=== PATIENT | female | born 1970 | race Caucasian/White ===

== ENCOUNTER → 2019-09-02 | Outpatient (CLI) | payer MEDICARE, MEDICAID ==
[2019-09-02 13:40] LABS: INTERNATIONAL RATION (INR) 1.62; PROTHROMBIN TIME 19.4 SEC (11.4-15.4)
== END ==
LOC: OD 12:48
PROVIDERS: ATTEND Registered Nurse
DX: D68.0 Von Willebrand disease (principal); Z79.01 Long term (current) use of anticoagulants; Z95.811 Presence of heart assist device
CPT/HCPCS: 36415; 85610

== ENCOUNTER 2020-01-27 11:38 | Emergency (ER) | payer MEDICARE, MEDICAID ==
--- NOTE | 2020-01-27 12:06 | ER Document Report ---
ED Medical Screen (RME) - General Chief Complaint: Shortness Of Breath Stated Complaint: SHORTNESS OF BREATH Primary Care Provider: TWAN SCOTT FNP [Primary Care Provider] - Follow up as needed Notes: Patient is a 49-year-old -[place] female with a history of CHF and ejection fraction of 20% with an LVAD in place who presents to the emergency department chief complaint of chest pain. She states it was right chest and back pain that lasted about 5 or 6 minutes this morning. States she felt like she was being stopped and kicked. She reports that she called Dariusz who manages her LVAD and they advised she come to the ER for evaluation. She states she is currently asymptomatic. I have treated and performed a rapid initial assessment of this patient. A comprehensive ED assessment and evaluation of the patient, analysis of test results and completion of medical decision making process will be conducted by additional ED providers. PHYSICAL EXAMINATION: GENERAL: Well-appearing, well-nourished and in no acute distress. A&Ox4. Answers questions appropriately. TRAVEL OUTSIDE OF THE [place] IN LAST 30 DAYS: No - Related Data Allergies/Adverse Reactions: lisinopril Allergy (Verified 01/27/20 12:02) tramadol Allergy (Verified 01/27/20 12:02) Physical Exam - Vital signs Vitals: Temp Pulse Resp BP Pulse Ox 98.1 F 79 18 90/56 L 98 01/27/20 11:45 01/27/20 11:45 01/27/20 11:45 01/27/20 11:45 01/27/20 11:45 Course - Vital Signs Vital signs: Temp Pulse Resp BP Pulse Ox 98.1 F 79 18 90/56 L 98 01/27/20 11:45 01/27/20 11:45 01/27/20 11:45 01/27/20 11:45 01/27/20 11:45 Doctor's Discharge - Discharge Referrals: TWAN SCOTT FNP [Primary Care Provider] - Follow up as needed
--- NOTE | 2020-01-27 12:25 | EKG REPORT ---
SEVERITY:- DEFECTIVE ECG - TECHNICALLY POOR TRACING - PLEASE REPEAT ECG! SINUS RHYTHM REPOL ABNRM, PROBABLE ISCHEMIA, LATERAL LEADS : Confirmed by: Ruslan Dutta MD 27-Jan-2020 12:23:58
[2020-01-27 12:41] LABS: ABSOLUTE EOSINOPHILS # (AUTO) 0.1 10^3/uL (0.0-0.6); ABSOLUTE LYMPHOCYTES (AUTO) 2.1 10^3/uL (0.5-4.7); ABSOLUTE MONOCYTES (AUTO) 0.6 10^3/uL (0.1-1.4); ABSOLUTE NEUT (AUTO) 3.1 10^3/uL (1.7-8.2); BASOPHILS % (AUTO) 0.8 % (0-2); EOSINOPHILS % (AUTO) 1.4 % (0-6); HEMATOCRIT 37.3 % (36.0-47.0); HEMOGLOBIN 12.5 g/dL (12.0-15.5); LYMPHOCYTES % (AUTO) 35.9 % (13-45); MEAN CORPUSCULAR HEMOGLOBIN 32.5 pg (27.0-33.4); MEAN CORPUSCULAR HGB CONC 33.4 g/dL (32.0-36.0); MEAN CORPUSCULAR VOLUME 97 fl (80-97); MONOCYTES % (AUTO) 9.3 % (3-13); PLATELET COUNT 313 10^3/uL (150-450); RED BLOOD COUNT 3.83 10^6/uL (3.72-5.28); RED CELL DISTRIBUTION WIDTH 13.3 % (11.5-14.0); SEGMENTED NEUTROPHILS % (AUTO) 52.6 % (42-78); TOTAL CELLS COUNTED % (AUTO) 100 %
[2020-01-27 12:47] LABS: PROTHROMBIN TIME 24.5 SEC (11.4-15.4)
[2020-01-27 12:48] LABS: PARTIAL THROMBOPLASTIN TIME 42.3 SEC (23.5-35.8)
[2020-01-27 13:01] LABS: ALKALINE PHOSPHATASE 74 U/L (38-126); ANION GAP 6 (5-19); ASPARTATE AMINO TRANSFERASE 32 U/L (14-36); BILIRUBIN,TOTAL 0.5 mg/dL (0.2-1.3); BLOOD UREA NITROGEN 14 mg/dL (7-20); CALCIUM 8.8 mg/dL (8.4-10.2); CARBON DIOXIDE 29 mmol/L (22-30); CHLORIDE 103 mmol/L (98-107); CREATINE KINASE 71 U/L (30-135); GLUCOSE 87 mg/dL (75-110); POTASSIUM 4.4 mmol/L (3.6-5.0); TOTAL PROTEIN 7.7 g/dL (6.3-8.2)
--- NOTE | 2020-01-27 13:01 | RADIOLOGY REPORT (SQ) ---
EXAM DESCRIPTION: CHEST SINGLE VIEW IMAGES COMPLETED DATE/TIME: 01/27/2020 12:37 pm REASON FOR STUDY: cp COMPARISON: None. EXAM PARAMETERS: NUMBER OF VIEWS: One view. TECHNIQUE: Single frontal radiographic view of the chest acquired. RADIATION DOSE: NA LIMITATIONS: None. FINDINGS: LUNGS AND PLEURA: No opacities, masses or pneumothorax. No pleural effusion. MEDIASTINUM AND HILAR STRUCTURES: No masses. Contour normal. HEART AND VASCULAR STRUCTURES: Heart normal in size. Normal vasculature. BONES: No acute findings. HARDWARE: Midline surgical changes. AICD. Left ventricular assist device. OTHER: No other significant finding. IMPRESSION: No evidence of acute cardiopulmonary abnormality. TECHNICAL DOCUMENTATION: JOB ID: [id number] 2010 [employer]- All Rights Reserved Reading location - IP/workstation name: [email or web address]
[2020-01-27 17:23] VITALS: BP 116/74
--- NOTE | 2020-01-27 18:52 | ER Document Report ---
Entered by KWABENA HILL SCRIBE 01/27/20 1246 Acting as scribe for:EFRA GUADARRAMA MD ED General - General Chief Complaint: Chest Pain Stated Complaint: SHORTNESS OF BREATH Time Seen by Provider: 01/27/20 12:44 Primary Care Provider: TWAN SCOTT FNP [NO LOCAL MD] - Follow up as needed Information source: Patient Notes: This 49 year old female patient with CHF s/p LVAD placement presents to the emergency department today with complaints of left sided "rib pain" yesterday which has subsided and right sided jaw pain and shortness of breath today. Patient states that her shortnes of breath only lasted for a few seconds today but she called her LVAD team which told her she needed to be evaluated. Patient currently only has intermittent right sided jaw pain. Patient describes this pain as "sharp pressure". TRAVEL OUTSIDE OF THE [place] IN LAST 30 DAYS: No - Related Data Allergies/Adverse Reactions: lisinopril Allergy (Verified 01/27/20 12:02) tramadol Allergy (Verified 01/27/20 12:02) Home Medications: gabapentin. warfarin. levothryoxine. fluticasone. digoxin. sildenafil. spironolactone. ferrous sulfate. prilosce. aspirin. folic acid. metalozone. torsemide. multivitamin. caltrate. zyrtec. percocet. Past Medical History - General Information source: Patient - Social History Smoking Status: Former Smoker Cigarette use (# per day): No Chew tobacco use (# tins/day): No Frequency of alcohol use: None Drug Abuse: None Lives with: Family Family History: Reviewed & Not Pertinent Patient has homicidal ideation: No - Past Medical History Cardiac Medical History: Reports: Hx Congestive Heart Failure Past Surgical History: Reports: Hx Cardiac Surgery - LVAD placement Review of Systems - Review of Systems Constitutional: denies: Diaphoresis EENT: See HPI, Other - jaw pain Cardiovascular: See HPI, Chest pain Respiratory: See HPI, Short of breath Gastrointestinal: No symptoms reported Genitourinary: No symptoms reported Female Genitourinary: No symptoms reported Musculoskeletal: No symptoms reported Skin: No symptoms reported Hematologic/Lymphatic: No symptoms reported Neurological/Psychological: No symptoms reported -: Yes All other systems reviewed and negative Physical Exam - Vital signs Vitals: Temp Pulse Resp BP Pulse Ox 98.1 F 79 18 90/56 L 98 01/27/20 11:45 01/27/20 11:45 01/27/20 11:45 01/27/20 11:45 01/27/20 11:45 - Notes Notes: Physical Exam: General: Alert, appears well. HEENT: Normocephalic. Atraumatic. PERRL. Extraocular movements intact. Oropharynx clear. Neck: Supple. Non-tender. Respiratory: No respiratory distress. Clear and equal breath sounds bilaterally. Healed surgical scars. Cardiovascular: Mechanical whirr, no palpable pulses consistent with LVAD. Abdominal: Obese. Non-tender. No distension. Normal Bowel Sounds. Back: No gross abnormalities. Extremities: Moves all four extremities. Upper extremities: Normal inspection. Normal ROM. Lower extremities: Normal inspection. No edema. Normal ROM. Neurological: Normal cognition. AAOx4. Normal speech. Psychological: Normal affect. Normal Mood. Skin: Warm. Dry. Normal color. No rashes. Course - Re-evaluation Re-evalutation: 01/27/20 18:28 Patient resting comfortably and has not shown any signs of distress or hemodynamic compromise. Patient denies any chest pain since she has been in the department. 01/27/20 18:49 Case discussed with the LVAD coordinator at [facility] shared patient's clinical course here in the ED as well as laboratory values and inasmuch as patient is not showing any kind of acute injury pattern we were able to discharge patient home without any further evaluation today. Patient is advised to follow-up with her primary care physicians and her LVAD doctors at [facility]. - Vital Signs Vital signs: Temp Pulse Resp BP Pulse Ox 98.1 F 79 24 H 116/74 100 01/27/20 12:02 01/27/20 11:45 01/27/20 18:01 01/27/20 17:01 01/27/20 14:03 01/27/20 18:28 Signs are stable showing no acute process. - Laboratory Result Diagrams: 01/27/20 12:19 01/27/20 12:19 Laboratory results interpreted by me: 01/27/20 01/27/20 12:19 12:19 PT 24.5 H APTT 42.3 H NT-Pro-B Natriuret Pep 654 H Patient's laboratories essentially within normal limits except BNP was 654 and a pro time was 24.5. - Diagnostic Test Radiology reviewed: Image reviewed, Reports reviewed Radiology results interpreted by me: 01/27/20 18:30 Chest x-ray shows no acute process left ventricular assist device noted along with surgical wires otherwise no acute process. - EKG Interpretation by Me Additional EKG results interpreted by me: 01/27/20 18:31 Technical poor tracing. Repeat tracing needed. Nonetheless a sinus rhythm with questionable ischemic changes. Repeat EKG is ordered. 01/27/20 18:45 Shows normal sinus rhythm rate of 84 with biatrial abnormalities. Inferior injury probably early acute infarct. Old inferior injury. Abnormal R wave progression consider lead placement or acute OK. Reviewing reviewing the EKGs at today patient has electrical interference because of her LVAD and therefore the EKG has brought interference through several of the leads of the EKG. Makes interpretation somewhat difficult however there is no evidence that I see of an acute OK. Patient has been hemodynamically stable chest pain-free and a troponin x2 actually both within the cutoff range of of normal and actually declining. With that said I do not think patient is having an acute ST elevation OK. Discharge - Discharge Clinical Impression: Chest pain at rest, Left ventricular assist device present, Congestive heart failure Condition: Stable Disposition: HOME, SELF-CARE Instructions: Chest Pain of Unclear Cause ([facility]) Additional Instructions: Today's evaluation has not disclosed that there is any acute coronary event or congestive heart failure worsening today. We had discussion with your LVAD coordinator at [facility] and based on our discussion you are stable to be discharged home. We do advise that you return to the department if you have any further problems also we advised that you follow-up with your doctors at [facility] regarding your LVAD and your conditions of chest pain if they do return. There is no change in your medications at this time. Referrals: TWAN SCOTT, ROBB [NO LOCAL MD] - Follow up as needed I personally performed the services described in the documentation, reviewed and edited the documentation which was dictated to the scribe in my presence, and it accurately records my words and actions.
--- NOTE | 2020-01-27 19:59 | EKG REPORT ---
SEVERITY:- DEFECTIVE ECG - SINUS RHYTHM BIATRIAL ABNORMALITIES INFERIOR INJURY, PROBABLE EARLY ACUTE INFARCT LATERAL INFARCT, OLD ABNRM R PROG, CONSIDER ASMI OR LEAD PLACEMENT : Confirmed by: Ruslan Dutta MD 27-Jan-2020 19:57:54
== END 2020-01-27 19:23 | disposition home or self-care (01) ==
LOC: ER 11:38
DX: R07.9 Chest pain, unspecified (principal); R07.81 Pleurodynia; I50.9 Heart failure, unspecified; Z95.811 Presence of heart assist device; R06.02 Shortness of breath; R68.84 Jaw pain; Z88.8 Allergy status to other drugs, medicaments and biological substances; Z79.899 Other long term (current) drug therapy; Z79.01 Long term (current) use of anticoagulants; Z79.82 Long term (current) use of aspirin; Z87.891 Personal history of nicotine dependence
CPT/HCPCS: 36415; 71045; 80053; 82550; 83880; 84484; 85025; 85610; 85730; 93005; 93010; 99285

== ENCOUNTER 2020-03-10 20:55 | Emergency (ER) | payer MEDICARE, MEDICAID ==
[2020-03-10] MEDS ORDERED: METOCLOPRAMIDE HCL INJ/PF 10 MG/2 ML SDV IV ONE (22:31)
[2020-03-10] MEDS: ONDANSETRON 4 MG TAB.RAPDIS PO ONE ×2 (22:34→22:39)
[2020-03-10] MEDS: ACETAMINOPHEN 325 MG TABLET PO ONE ×2 (22:34→22:38)
[2020-03-10] MEDS ORDERED: NORMAL SALINE 250 ML IV ONE (22:38)
--- NOTE | 2020-03-10 22:43 | ER Document Report ---
ED Headache <BRANDI PAGAN - Last Filed: 03/11/20 02:00> - General TRAVEL OUTSIDE OF THE [place] IN LAST 30 DAYS: No - Related Data Home Medications: Gabapentin. warfarin. Levothyroxine. flonase. DIgoxin. SIfdenafil. spironolactone. iron. prilosec. ASA. folic acid. metalaomzone. lasix. multi vitamin. zyrtec <MEGAN WARD - Last Filed: 03/11/20 03:04> - General Chief Complaint: Headache Stated Complaint: SEVERE HEADACHE,VOMITING Time Seen by Provider: 03/10/20 22:08 Primary Care Provider: SHOSHANA AYALA MD [Primary Care Provider] - Follow up as needed Notes: Patient is a 49-year-old female who presents the emergency department with a chief complaint of a headache. Patient states that her headache started this morning. States that it is in her frontal area of her head. Patient states that her daughter tested positive for COVID-19. Patient states that she was tested today, but did not receive her results. Patient states that she has been vomiting multiple times. Patient states that she has never had this before. Patient sometimes does complain of migraines. Patient is currently on warfarin. She is an LVAD patient. (MEGAN WARD) - Related Data Allergies/Adverse Reactions: lisinopril Allergy (Verified 01/27/20 12:02) tramadol Allergy (Verified 01/27/20 12:02) Past Medical History - Social History Smoking Status: Former Smoker Chew tobacco use (# tins/day): No Frequency of alcohol use: None Drug Abuse: None Family History: Reviewed & Not Pertinent - Past Medical History Cardiac Medical History: Reports: Hx Congestive Heart Failure Denies: Hx Atrial Fibrillation, Hx Hypertension Pulmonary Medical History: Denies: Hx Bronchitis, Hx COPD, Hx Pneumonia, Hx Tuberculosis Neurological Medical History: Denies: Hx Migraine, Hx Seizures Endocrine Medical History: Denies: Hx Diabetes Mellitus Type 1, Hx Diabetes Mellitus Type 2 Renal/ Medical History: Denies: Hx End Stage Renal Disease, Hx Kidney Stones GI Medical History: Denies: Hx Gastroesophageal Reflux Disease, Hx Ulcer Musculoskeletal Medical History: Denies Hx Arthritis Psychiatric Medical History: Denies: Hx Attention Deficit Hyperactivity Disorder, Hx Bipolar Disorder, Hx Depression, Hx Schizophrenia Past Surgical History: Reports: Hx Abdominal Surgery, Hx Appendectomy, Hx Cardiac Catheterization, Hx Cardiac Surgery - LVAD placement, pacemaker, Hx Cholecystectomy, Hx Gynecologic Surgery, Hx Hysterectomy, Hx Orthopedic Surgery, Hx Thyroid Surgery, Hx Tubal Ligation. Denies: Hx Bowel Surgery, Hx Breast Surgery, Hx Mastectomy, Hx Nose Surgery, Hx Oral Surgery, Hx Pancreatic Surgery, Hx Pituitary Surgery, Hx Urinary Tract Surgery <MEGAN WARD - Last Filed: 03/11/20 03:04> Review of Systems <MEGAN WARD - Last Filed: 03/11/20 03:04> - Review of Systems Notes: REVIEW OF SYSTEMS: CONSTITUTIONAL : Denies recent illness. Denies recent unintentional weight loss. See HPI. EENT: Denies eye, ear, throat, or mouth pain, discharge, or symptoms. See HPI. CARDIOVASCULAR: Denies chest pain. RESPIRATORY: Denies shortness of breath, cough, congestion, difficulty breathing, or wheezing. GASTROINTESTINAL: See HPI. GENITOURINARY: Denies difficulty urinating, burning, blood in urine, urgency or frequency. MUSCULOSKELETAL: Denies neck and back pain. Denies joint pain or swelling. SKIN: Denies rash, itchiness, or lesions HEMATOLOGIC : Denies easy bruising or bleeding. LYMPHATIC: Denies swollen, painful, enlarged glands. NEUROLOGICAL: Denies no numbness or tingling denies weakness. Denies altered mental status. Denies alteration in speech. See HPI. PSYCHIATRIC: Denies stress, anxiety, alteration in sleep patterns, or depression. All other systems reviewed and negative. (MEGAN WARD) Physical Exam <MEGAN WARD - Last Filed: 03/11/20 03:04> - Vital signs Vitals: Temp Pulse Resp BP Pulse Ox 98.5 F 86 17 124/98 H 100 03/10/20 21:09 03/10/20 21:09 03/10/20 21:09 03/10/20 21:09 03/10/20 21:09 - Notes Notes: PHYSICAL EXAMINATION: GENERAL: Appears well, healthy, well-nourished, no acute distress. HEAD: Normocephalic, atraumatic. EYES: PERRL, conjunctiva normal, all extraocular movements intact, sclera nonicteric ENT: Moist mucous membranes. NECK: Supple, no noticeable swelling, redness, rash. Normal range of motion. LUNGS: Equal breath sounds bilaterally and clear to auscultation. No wheezes rales or rhonchi. CARDIOVASCULAR: S1-S2, regular rate, regular rhythm. Radial pulses 2+, normal. ABDOMEN: Normoactive bowel sounds. Soft, nontender, no guarding, no rebound tenderness, and no masses palpated. EXTREMITIES: Normal strength and range of motion, no pitting or edema. No cyanosis. NEUROLOGICAL: Moves all extremities upon command. Strength 5/5 in all extremities. PSYCH: Normal mood, normal affect. SKIN: Warm, dry. No rash, lesions, ulcerations noted. Normal skin turgor. (MEGAN WARD) Course - Laboratory Result Diagrams: 03/10/20 22:59 03/10/20 22:59 <BRANDI PAGAN - Last Filed: 03/11/20 02:00> - Laboratory Result Diagrams: 03/10/20 22:59 03/10/20 22:59 <MEGAN WARD - Last Filed: 03/11/20 03:04> - Re-evaluation Re-evalutation: 03/11/20 02:00 Patient handoff given at bedside to me, I did evaluate patient. Patient is drowsy and sleeping but she did arouse to voice, she is cooperative, oriented, has equal pupils, equal strength bilaterally, she states she still has a headache but she has improved from before. Transport is expected to be within the hour. (BRANDI PAGAN) 03/10/20 23:38 I spoke with [facility] [place]. Will await a call back. At the same time, the radiologist called me with a critical result for an acute to subacute subdural hematoma. Updated the patient on findings. 03/10/20 23:45 Updated patient's daughter on findings. 03/11/20 00:[address] Mabry, from neurosurgery. Dr. Juarez will be the attending physician accepting the patient. 03/11/20 01:00 I was called by [facility] again. Will arrange transport for ground t ransportation. They recommend oxycodone for pain relief. 03/11/20 01:40 Spoke with the transfer center again. They will arrange for flight transportation. They recommend giving 5 mg of vitamin K IV and 1 unit of FFP. 03/11/20 02:00 Bedside handoff given to MELCHOR Hernandez. Patient states that her headache is a little bit better. She is drowsy, but obeys commands, pupils are equal and reactive to light. 03/11/20 02:21 Updated the patient's daughter on arrangements. Advised her that she is going to be going to [facility]. 03/11/20 03:04 (MEGAN WARD) - Vital Signs Vital signs: Temp Pulse Resp BP Pulse Ox 98.2 F 75 18 119/90 H 93 03/11/20 02:40 03/11/20 02:35 03/11/20 02:40 03/11/20 02:35 03/11/20 02:35 - Laboratory Laboratory results interpreted by me: 03/10/20 03/10/20 03/10/20 22:59 22:59 23:34 Seg Neutrophils % 80.3 H PT APTT Sodium 136.6 L Glucose 157 H Total Protein 9.6 H Urine Protein >=500 H Urine Urobilinogen 4.0 H Ur Leukocyte Esterase TRACE H Urine Ascorbic Acid 40 H 03/11/20 00:45 Seg Neutrophils % PT 26.1 H APTT 42.2 H Sodium Glucose Total Protein Urine Protein Urine Urobilinogen Ur Leukocyte Esterase Urine Ascorbic Acid Critical Care Note - Critical Care Note Total time excluding time spent on procedures (mins): 40 <MEGAN WARD - Last Filed: 03/11/20 03:04> - Critical Care Note Comments: Critical care time spent obtaining history from patient or surrogate, discussions with consultants, development of treatment plan with patient or surrogate, evaluation of patient's response to treatment, examination of patient, ordering and performing treatments and interventions, ordering and review of laboratory studies, re-evaluation of patient's condition, ordering and review of radiographic studies and review of old charts (MEGAN WARD) Discharge <BRANDI PAGAN - Last Filed: 03/11/20 02:00> - Discharge Admitting Provider: Dr. Juarez <MEGAN WARD - Last Filed: 03/11/20 03:04> - Discharge Clinical Impression: Subdural hematoma Condition: Critical Disposition: [facility] Referrals: SHOSHANA AYALA MD [Primary Care Provider] - Follow up as needed
[2020-03-10] MEDS ORDERED: DIPHENHYDRAMINE HCL 50 MG/ML VIAL IV ONE (22:45)
[2020-03-10 23:12] LABS: ABSOLUTE BASOPHILS # (AUTO) 0.1 10^3/uL (0.0-0.2); ABSOLUTE LYMPHOCYTES (AUTO) 1.4 10^3/uL (0.5-4.7); ABSOLUTE MONOCYTES (AUTO) 0.5 10^3/uL (0.1-1.4); BASOPHILS % (AUTO) 0.9 % (0-2); HEMATOCRIT 37.3 % (36.0-47.0); HEMOGLOBIN 12.7 g/dL (12.0-15.5); LYMPHOCYTES % (AUTO) 14.2 % (13-45); MEAN CORPUSCULAR HEMOGLOBIN 32.6 pg (27.0-33.4); MEAN CORPUSCULAR HGB CONC 34.1 g/dL (32.0-36.0); MEAN CORPUSCULAR VOLUME 96 fl (80-97); MONOCYTES % (AUTO) 4.6 % (3-13); PLATELET COUNT 376 10^3/uL (150-450); RED CELL DISTRIBUTION WIDTH 13.4 % (11.5-14.0); SEGMENTED NEUTROPHILS % (AUTO) 80.3 % (42-78); TOTAL CELLS COUNTED % (AUTO) 100 %; WHITE BLOOD COUNT 9.9 10^3/uL (4.0-10.5)
[2020-03-10 23:25] LABS: ALBUMIN 4.8 g/dL (3.5-5.0); ALKALINE PHOSPHATASE 96 U/L (38-126); ANION GAP 11 (5-19); ASPARTATE AMINO TRANSFERASE 36 U/L (14-36); BILIRUBIN,DIRECT 0.3 mg/dL (0.0-0.4); BILIRUBIN,TOTAL 0.9 mg/dL (0.2-1.3); BLOOD UREA NITROGEN 14 mg/dL (7-20); CALCIUM 9.9 mg/dL (8.4-10.2); CARBON DIOXIDE 26 mmol/L (22-30); CHLORIDE 100 mmol/L (98-107); GLUCOSE 157 mg/dL (75-110); POTASSIUM 4.6 mmol/L (3.6-5.0); TOTAL PROTEIN 9.6 g/dL (6.3-8.2)
--- NOTE | 2020-03-10 23:27 | RADIOLOGY REPORT (SQ) ---
EXAM DESCRIPTION: CT head without contrast CLINICAL HISTORY: 49 years Female, headache; on blood thinners COMPARISON: None. TECHNIQUE: Axial images of the head were performed without the use of intravenous contrast, with sagittal and coronal reformatted images. This exam was performed according to our departmental dose-optimization program which includes use of Automated Exposure Control, adjustment of the mA and/or kV according to patient size and/or use of iterative reconstruction technique. FINDINGS: There is a left frontal and parietal subdural hematoma, with a maximal thickness of 13 mm. This subdural hematoma is relatively low in density, likely consisting of subacute hemorrhage. There are small areas of relative high density, acute blood in this left subdural collection. I believe there is also a small amount of acute subdural blood in the anterior interhemispheric fissure. There are 8 mm of midline shift toward the right side. The cortical sulci are very poorly visualized, raising the possibility of brain edema. IMPRESSION: Left-sided subdural hematoma as described, likely a combination of subacute and acute hemorrhage. Mass effect as described. Possible brain edema.
[2020-03-10] MEDS ORDERED: LEVETIRACETAM 1000 MG/NACL-ISO 1,000 MG/100 ML RTUPB IV ONE (23:51)
[2020-03-11 00:04] LABS: APPEARANCE,URINE SLIGHTLY-CLOUDY; BILIRUBIN,URINE NEGATIVE (NEGATIVE); COLOR,URINE YELLOW; GLUCOSE, URINE NEGATIVE (NEGATIVE); KETONES,URINE NEGATIVE (NEGATIVE); LEUKOCYTE ESTERASE,URINE TRACE (NEGATIVE); NITRITE,URINE NEGATIVE (NEGATIVE); PROTEIN,URINE >=500 mg/dL (NEGATIVE); URINE SPECIFIC GRAVITY 1.023
[2020-03-11] MEDS ORDERED: OXYCODONE HCL IR 5 MG TABLET PO ONE (00:57)
[2020-03-11 01:10] LABS: INTERNATIONAL RATION (INR) 2.39; PROTHROMBIN TIME 26.1 SEC (11.4-15.4)
[2020-03-11 01:11] LABS: PARTIAL THROMBOPLASTIN TIME 42.2 SEC (23.5-35.8)
[2020-03-11] MEDS ORDERED: NORMAL SALINE 250 ML IV PRN (01:33)
[2020-03-11] MEDS ORDERED: PHYTONADIONE INJ 1 MG/0.5 ML AMPULE INJ ONE (01:34)
[2020-03-11] MEDS ORDERED: PHYTONADIONE INJ 1 MG/0.5 ML AMPULE ONE ×2 (02:03→02:05)
--- NOTE | 2020-03-11 03:44 | ER Document Report ---
Doctor's Note Notes: 03/11/20 03:43 [facility] has arrived to transport patient. This MD went to the bedside and evaluated the patient at 0335 hrs. prior to her being transferred. Patient has a GCS of 15. Patient appears to be in no acute distress. Patient appears stable for transfer at this time.
[2020-03-11 03:49] VITALS: BP 104/74
== END 2020-03-11 03:49 | disposition short-term general hospital (02) ==
LOC: ER 20:55
DX: S06.5X9A Traumatic subdural hemorrhage with loss of consciousness of unspecified duration, initial encounter (principal); X58.XXXA Exposure to other specified factors, initial encounter; R51 Headache; R11.10 Vomiting, unspecified; I50.9 Heart failure, unspecified; Z79.01 Long term (current) use of anticoagulants; Z79.82 Long term (current) use of aspirin; Z79.899 Other long term (current) drug therapy; Z95.811 Presence of heart assist device; Z87.891 Personal history of nicotine dependence; Z88.8 Allergy status to other drugs, medicaments and biological substances; Z88.6 Allergy status to analgesic agent; Z20.828 Contact with and (suspected) exposure to other viral communicable diseases
CPT/HCPCS: 99285; 96361; 96374; 96375; 86900; 86901; 36415; 36430; 85025; 85610; 85730; 80053; 81001; 70450; P9017; A9270 ×3; J2765; J7050 ×2; J3430; J1953; S0119